=== PATIENT | male | born 1955 | race Caucasian/White ===

== ENCOUNTER 2022-05-26 08:30 | Emergency (ER) | payer MEDICARE, OTHER ==
[~2022-05-26] VITALS: Ht 175.3 cm; Wt 104.0 kg
[~2022-05-26 08:30] MED LIST: BUPR-50 PO; OLAN10TA74 PO; OLAN7.5T22 PO
[2022-05-26 09:03] LABS: BASOPHILS % (AUTO) 0.8 % (0.0-2.0); EOSINOPHILS % (AUTO) 2.4 % (1.0-6.0); HEMATOCRIT 40.8 % (41-53); HEMOGLOBIN 13.8 g/dL (13.5-17.5); LYMPHOCYTES # (AUTO) 1.7 K/uL (1.0-4.8); LYMPHOCYTES % (AUTO) 37.3 % (22.0-44.0); MEAN CORPUSCULAR HEMOGLOBIN 31.9 pg (26.0-34.0); MEAN CORPUSCULAR HGB CONC 33.9 G/dL (31.0-37.0); MEAN CORPUSCULAR VOLUME 94 fL (80-100); MONOCYTES # (AUTO) 0.4 K/uL (0.1-1.0); MONOCYTES % (AUTO) 8.7 % (2.0-9.0); NEUTROPHILS # (AUTO) 2.4 K/uL (1.8-7.7); NEUTROPHILS % (AUTO) 50.8 % (40.0-70.0); PLATELET COUNT (AUTO) 126 K/uL (150-450); RED BLOOD CELL COUNT(AUTO) 4.33 MIL/uL (4.50-5.90); RED CELL DISTRIBUTION WIDTH 13.5 % (11.5-14.5)
[2022-05-26 09:06] LABS: ANION GAP 7 mmol/L (8-16); CALCIUM, TOTAL 8.4 mg/dL (8.8-10.5); CARBON DIOXIDE 28 mmol/L (22-29); CHLORIDE 108 mmol/L (98-107); GLOMERULAR FILTR. RATE CALC 47 mL/min (>60); GLUCOSE,RANDOM 104 mg/dL (70-110); SODIUM SERUM 143 mmol/L (136-145); UREA NITROGEN, BLOOD 27 mg/dL (7-18)
[2022-05-26 09:07] VITALS: BP 119/84
[2022-05-26 09:14] LABS: ALANINE AMINOTRANSFERASE 39 U/L (12-78); ALKALINE PHOSPHATASE 71 U/L (46-116); ASPARTATE AMINOTRANSFERASE 27 U/L (15-37); BILIRUBIN,TOTAL 0.5 mg/dL (0.1-1.0); TOTAL PROTEIN, SERUM 6.6 g/dL (6.4-8.2)
[2022-05-26] MEDS ORDERED: ARIP1SOL PO (09:14)
[2022-05-26] MEDS ORDERED: DIVA125T32 PO (09:14)
[2022-05-26] MEDS ORDERED: GABA-1216 PO (09:14)
[2022-05-26] MEDS ORDERED: QUET25TA PO (09:14)
== END 2022-05-26 10:27 | disposition home or self-care (01) ==
LOC: EMS 08:30
DX: R45.851 Suicidal ideations (principal); F41.9 Anxiety disorder, unspecified; F20.9 Schizophrenia, unspecified; Z79.899 Other long term (current) drug therapy
CPT/HCPCS: 99284; 80053; 85025; 36415; G0480

== ENCOUNTER 2022-10-26 12:45 | Emergency (ER) | payer MEDICARE, OTHER ==
[~2022-10-26] VITALS: Ht 172.7 cm; Wt 86.4 kg
[~2022-10-26 12:45] MED LIST changes: +ARIP1SOL PO; +DIVA125T32 PO; +GABA-1216 PO; +QUET25TA PO
[2022-10-26 13:37] VITALS: BP 148/88
[2022-10-26 13:57] LABS: BASOPHILS % (AUTO) 0.6 % (0.0-2.0); EOSINOPHILS % (AUTO) 0.5 % (1.0-6.0); HEMATOCRIT 43.1 % (41-53); HEMOGLOBIN 14.5 g/dL (13.5-17.5); LYMPHOCYTES # (AUTO) 1.1 K/uL (1.0-4.8); LYMPHOCYTES % (AUTO) 21.5 % (22.0-44.0); MEAN CORPUSCULAR HEMOGLOBIN 32.5 pg (26.0-34.0); MEAN CORPUSCULAR HGB CONC 33.6 G/dL (31.0-37.0); MEAN CORPUSCULAR VOLUME 97 fL (80-100); MONOCYTES # (AUTO) 0.3 K/uL (0.1-1.0); MONOCYTES % (AUTO) 5.9 % (2.0-9.0); NEUTROPHILS # (AUTO) 3.6 K/uL (1.8-7.7); NEUTROPHILS % (AUTO) 71.5 % (40.0-70.0); PLATELET COUNT (AUTO) 124 K/uL (150-450); RED BLOOD CELL COUNT(AUTO) 4.46 MIL/uL (4.50-5.90); RED CELL DISTRIBUTION WIDTH 13.2 % (11.5-14.5)
[2022-10-26 14:05] LABS: CREATININE 1.33 mg/dL (0.60-1.30); POTASSIUM 4.5 mmol/L (3.5-5.1)
[2022-10-26 14:28] LABS: COVID AG,FIA SOURCE NASOPHARYNGEAL
[2022-10-26 14:51] LABS: INFLUENZA TYPE A NEGATIVE FOR TYPE A (NEGATIVE); INFLUENZA TYPE B NEGATIVE FOR TYPE B (NEGATIVE)
== END 2022-10-26 15:42 | disposition home or self-care (01) ==
LOC: EMS 12:49
DX: B34.9 Viral infection, unspecified (principal); Z20.822 Contact with and (suspected) exposure to COVID-19; F20.9 Schizophrenia, unspecified; F41.9 Anxiety disorder, unspecified; Z90.89 Acquired absence of other organs
CPT/HCPCS: 80048; 85025; 87804; 99283

== ENCOUNTER 2023-08-09 12:21 | Inpatient (IN) | payer MEDICARE, MEDICAID ==
[~2023-08-09] VITALS: Ht 175.3 cm; Wt 93.0 kg
[2023-08-09 15:09] LABS: BASOPHILS % (AUTO) 0.2 % (0.0-2.0); EOSINOPHILS % (AUTO) 0.2 % (1.0-6.0); HEMATOCRIT 43.2 % (41-53); HEMOGLOBIN 14.6 g/dL (13.5-17.5); LYMPHOCYTES # (AUTO) 1.2 K/uL (1.0-4.8); MEAN CORPUSCULAR HGB CONC 33.7 G/dL (31.0-37.0); MEAN CORPUSCULAR VOLUME 95 fL (80-100); MONOCYTES # (AUTO) 0.6 K/uL (0.1-1.0); MONOCYTES % (AUTO) 8.7 % (2.0-9.0); NEUTROPHILS % (AUTO) 72.9 % (40.0-70.0); PLATELET COUNT (AUTO) 170 K/uL (150-450); RED BLOOD CELL COUNT(AUTO) 4.55 MIL/uL (4.50-5.90); RED CELL DISTRIBUTION WIDTH 13.6 % (11.5-14.5); WHITE BLOOD COUNT (AUTO) 6.9 K/uL (4.5-11.0)
[2023-08-09 15:12] LABS: ANION GAP 7 mmol/L (8-16); CARBON DIOXIDE 28 mmol/L (22-29); CHLORIDE 107 mmol/L (98-107); CREATININE 1.23 mg/dL (0.60-1.30); GLOMERULAR FILTR. RATE CALC 59 mL/min (>60); GLUCOSE,RANDOM 114 mg/dL (70-110); POTASSIUM 4.8 mmol/L (3.5-5.1); SODIUM SERUM 142 mmol/L (136-145); UREA NITROGEN, BLOOD 27 mg/dL (7-18)
[2023-08-09 15:18] LABS: ALANINE AMINOTRANSFERASE 24 U/L (12-78); ALBUMIN 3.3 g/dL (3.4-5.0); ALKALINE PHOSPHATASE 81 U/L (46-116); ASPARTATE AMINOTRANSFERASE 20 U/L (15-37); BILIRUBIN,TOTAL 0.7 mg/dL (0.1-1.0); TOTAL PROTEIN, SERUM 7.1 g/dL (6.4-8.2)
[2023-08-09] MEDS ORDERED: LORazepam 2 MG TABLET PO PRN (15:45)
[2023-08-09] MEDS ORDERED: ZOLPIDEM TARTRATE 10 MG TABLET PO PRN (15:45)
[2023-08-09 16:12] LABS: ALCOHOL, BLOOD (SERUM) < 3 mg/dL (0-10)
[2023-08-09 16:33] LABS: COVID AG,FIA SOURCE NASAL SWAB
[2023-08-09 16:59] LABS: SARS-COV2 (COVID) ANTIGEN,FIA Negative (Negative)
[2023-08-10] MEDS ORDERED: LORazepam 2 MG/ML VIAL IM ONE (10:15)
[2023-08-10] MEDS: HALOPERIDOL 5 MG TABLET PO PRN (11:10)
[2023-08-10 13:10] VITALS: BP 150/80; PULSE 98; RESP 18; TEMP 97.8; O2SAT 97
[2023-08-10] MEDS ORDERED: INFLUENZA VIRUS VACCINE QVS 2023-24 (6MO+)/PF 60 MCG/0.5 ML SYRINGE IM. ONE (14:15)
[2023-08-10] MEDS ORDERED: PNEUMOCOCCAL VACCINE POLYVALENT 0.5 ML SYRINGE [PPSV23] IM. ONE (14:15)
[2023-08-10 21:06] VITALS: BP 134/83; PULSE 78; RESP 17; TEMP 97.9; O2SAT 96
[2023-08-11] MEDS ORDERED: ONDANSETRON HCL 4 MG TABLET PO PRN (07:15)
[2023-08-11] MEDS ORDERED: BENZOCAINE/MENTHOL LOZENGE PO PRN (07:15)
[2023-08-11] MEDS ORDERED: CloNIDine HCL 0.1 MG TABLET PO PRN (07:15)
[2023-08-11] MEDS ORDERED: IBUPROFEN 600 MG TABLET PO PRN (07:15)
[2023-08-11] MEDS ORDERED: LOPERAMIDE HCL 2 MG CAPSULE PO PRN (07:15)
[2023-08-11] MEDS ORDERED: DOCUSATE SODIUM 100 MG CAPSULE PO PRN (07:15)
[2023-08-11] MEDS ORDERED: PETROLATUM,WHITE 28 GM JELLY TP PRN (07:15)
[2023-08-11] MEDS ORDERED: OMEPRAZOLE 20 MG CAPSULE PO PRN (07:15)
[2023-08-11] MEDS ORDERED: ACETAMINOPHEN 325 MG TABLET PO PRN (07:15)
[2023-08-11] MEDS ORDERED: BACITRACIN 28 GM OINTMENT TP PRN (07:15)
[2023-08-11] MEDS ORDERED: MAGNESIUM HYDROXIDE SUSPENSION 30 ML UDCUP PO PRN (07:15)
[2023-08-11] MEDS ORDERED: MAG HYDROX/AL HYDROX/SIMETH ES 30 ML SUSPENSION UDCUP PO PRN (07:15)
[2023-08-11] MEDS ORDERED: ALBUTEROL SULFATE HFA 90 MCG/PUFF 8 GM INHALER IH PRN (07:15)
[2023-08-11 08:43] VITALS: BP 116/69; PULSE 59; RESP 18; TEMP 98; O2SAT 96
[2023-08-11] MEDS: HALOPERIDOL 5 MG TABLET PO PRN (18:59)
[2023-08-11] MEDS: DIVALPROEX SODIUM 500 MG DR TABLET PO SCH (18:59)
[2023-08-11] MEDS: QUEtiapine FUMARATE 300 MG TABLET PO SCH (20:30)
[2023-08-11 21:46] VITALS: BP 138/69; PULSE 61; RESP 18; TEMP 97.9; O2SAT 98
[2023-08-12 08:30] VITALS: BP 126/80; PULSE 75; RESP 17; TEMP 97.7; O2SAT 98
[2023-08-12] MEDS: AmLODIPine BESYLATE 5 MG TABLET PO SCH (08:40)
[2023-08-12] MEDS: DIVALPROEX SODIUM 500 MG DR TABLET PO SCH ×2 (08:40→16:45)
[2023-08-12 20:09] VITALS: BP 134/89; PULSE 97; RESP 18; TEMP 97.3; O2SAT 97
[2023-08-12] MEDS: QUEtiapine FUMARATE 300 MG TABLET PO SCH (20:31)
[2023-08-12] MEDS ORDERED: DIVA-112 PO (22:25)
[2023-08-12] MEDS ORDERED: QUET300T19 PO (22:25)
[2023-08-13] MEDS: DIVALPROEX SODIUM 500 MG DR TABLET PO SCH (08:04)
[2023-08-13] MEDS: AmLODIPine BESYLATE 5 MG TABLET PO SCH (08:04)
[2023-08-13 08:32] VITALS: BP 114/70; PULSE 82; RESP 17; TEMP 97.2; O2SAT 98
== END 2023-08-13 14:10 | disposition home or self-care (01) | DRG 885 ==
LOC: EMS 12:21 → B2X 08-10 09:46
PROVIDERS: ADMIT Psychiatry & Neurology Psychiatry; ATTEND Psychiatry & Neurology Psychiatry
DX: F20.9 Schizophrenia, unspecified (principal); T42.4X1A Poisoning by benzodiazepines, accidental (unintentional), initial encounter; F41.9 Anxiety disorder, unspecified; Z20.822 Contact with and (suspected) exposure to COVID-19; F10.90 Alcohol use, unspecified, uncomplicated; K59.00 Constipation, unspecified; G47.00 Insomnia, unspecified; Z79.899 Other long term (current) drug therapy; Y92.89 Other specified places as the place of occurrence of the external cause; Z90.49 Acquired absence of other specified parts of digestive tract
CPT/HCPCS: 80053; 85025; 90686; 90732; G0480; J2060

== ENCOUNTER 2023-09-17 12:05 | Inpatient (IN) | payer MEDICARE, MEDICAID ==
[~2023-09-17] VITALS: Ht 175.3 cm; Wt 81.4 kg
[~2023-09-17 12:05] MED LIST changes: -ARIP1SOL PO; -BUPR-50 PO; +DIVA-112 PO; -DIVA125T32 PO; -GABA-1216 PO; -OLAN10TA74 PO; -OLAN7.5T22 PO; -QUET25TA PO; +QUET300T19 PO
[2023-09-17 12:49] LABS: BASOPHILS % (AUTO) 0.8 % (0.0-2.0); HEMATOCRIT 41.4 % (41-53); LYMPHOCYTES # (AUTO) 1.2 K/uL (1.0-4.8); MEAN CORPUSCULAR HEMOGLOBIN 32.3 pg (26.0-34.0); MEAN CORPUSCULAR HGB CONC 33.8 G/dL (31.0-37.0); MEAN CORPUSCULAR VOLUME 95 fL (80-100); MONOCYTES # (AUTO) 0.4 K/uL (0.1-1.0); MONOCYTES % (AUTO) 7.4 % (2.0-9.0); NEUTROPHILS # (AUTO) 3.7 K/uL (1.8-7.7); NEUTROPHILS % (AUTO) 68.8 % (40.0-70.0); PLATELET COUNT (AUTO) 157 K/uL (150-450); RED BLOOD CELL COUNT(AUTO) 4.35 MIL/uL (4.50-5.90); RED CELL DISTRIBUTION WIDTH 13.1 % (11.5-14.5); WHITE BLOOD COUNT (AUTO) 5.4 K/uL (4.5-11.0)
[2023-09-17 12:54] LABS: COVID AG,FIA SOURCE NASAL SWAB
[2023-09-17 13:07] LABS: ANION GAP 9 mmol/L (8-16); CALCIUM, TOTAL 8.5 mg/dL (8.8-10.5); CARBON DIOXIDE 28 mmol/L (22-29); CHLORIDE 103 mmol/L (98-107); CREATININE 1.39 mg/dL (0.60-1.30); GLOMERULAR FILTR. RATE CALC 51 mL/min (>60); GLUCOSE,RANDOM 108 mg/dL (70-110); POTASSIUM 3.8 mmol/L (3.5-5.1); SODIUM SERUM 140 mmol/L (136-145); UREA NITROGEN, BLOOD 24 mg/dL (7-18)
[2023-09-17 13:13] LABS: ALANINE AMINOTRANSFERASE 22 U/L (12-78); ALBUMIN 3.5 g/dL (3.4-5.0); ALKALINE PHOSPHATASE 80 U/L (46-116); ASPARTATE AMINOTRANSFERASE 21 U/L (15-37); BILIRUBIN,TOTAL 0.9 mg/dL (0.1-1.0); TOTAL PROTEIN, SERUM 7.6 g/dL (6.4-8.2)
[2023-09-17 13:25] LABS: SARS-COV2 (COVID) ANTIGEN,FIA Negative (Negative)
[2023-09-17 13:39] LABS: ALCOHOL, URINE DRUG SCREEN NEGATIVE (NEGATIVE); AMPHET/METH SCREEN,URINE NEGATIVE (NEGATIVE); BARBITURATE SCREEN, URINE NEGATIVE (NEGATIVE); BENZODIAZEPINES SCREEN,URINE NEGATIVE (NEGATIVE); CANNABINOID SCREEN,URINE NEGATIVE (NEGATIVE); COCAINE SCREEN,URINE NEGATIVE (NEGATIVE); METHADONE SCREEN, URINE NEGATIVE (NEGATIVE); OPIATE SCREEN,URINE NEGATIVE (NEGATIVE); PHENCYCLIDINE SCREEN,URINE NEGATIVE (NEGATIVE)
[2023-09-17 13:41] LABS: ALCOHOL, BLOOD (SERUM) < 3 mg/dL (0-10)
[2023-09-17] MEDS ORDERED: ZOLPIDEM TARTRATE 10 MG TABLET PO PRN (14:00)
[2023-09-17] MEDS ORDERED: LORazepam 2 MG TABLET PO PRN (14:00)
[2023-09-17] MEDS ORDERED: OLANZapine 5 MG RAPDIS TABLET PO PRN (14:00)
[2023-09-17 14:43] LABS: APPEARANCE,URINE CLEAR (CLEAR); BILIRUBIN,URINE NEGATIVE (NEGATIVE); COLOR,URINE LIGHT YELLOW (YELLOW); GLUCOSE, URINE (UA) NEGATIVE (NEGATIVE); KETONES,URINE NEGATIVE (NEGATIVE); LEUKOCYTE ESTERASE ,URINE NEGATIVE (NEGATIVE); NITRATE,URINE NEGATIVE (NEGATIVE); OCCULT BLOOD,URINE NEGATIVE (NEGATIVE); PROTEIN,URINE NEGATIVE (NEGATIVE); SPECIFIC GRAVITIY, URINE 1.012 (1.003-1.030); UROBILINOGEN,URINE <=1.0 mg/dL (<=1.0)
[2023-09-17 16:40] VITALS: BP 159/68; PULSE 88; RESP 17; TEMP 97.5; O2SAT 96
[2023-09-17] MEDS ORDERED: PNEUMOCOCCAL VACCINE POLYVALENT 0.5 ML SYRINGE [PPSV23] IM. ONE (20:15)
[2023-09-17] MEDS ORDERED: CloNIDine HCL 0.1 MG TABLET PO PRN (21:15)
[2023-09-17] MEDS: AmLODIPine BESYLATE 5 MG TABLET PO SCH (21:18)
[2023-09-18] MEDS: AmLODIPine BESYLATE 5 MG TABLET PO SCH (08:37)
[2023-09-18 09:15] VITALS: BP 145/73; PULSE 77; RESP 18; TEMP 98; O2SAT 97
[2023-09-18] MEDS: DIVALPROEX SODIUM 500 MG DR TABLET PO SCH (17:27)
[2023-09-18] MEDS ORDERED: MAGNESIUM HYDROXIDE SUSPENSION 30 ML UDCUP PO PRN (17:30)
[2023-09-18] MEDS ORDERED: LOPERAMIDE HCL 2 MG CAPSULE PO PRN (17:30)
[2023-09-18] MEDS ORDERED: DOCUSATE SODIUM 100 MG CAPSULE PO PRN (17:30)
[2023-09-18] MEDS ORDERED: ONDANSETRON HCL 4 MG TABLET PO PRN (17:30)
[2023-09-18] MEDS ORDERED: BACITRACIN 28 GM OINTMENT TP PRN (17:30)
[2023-09-18] MEDS ORDERED: PETROLATUM,WHITE 28 GM JELLY TP PRN (17:30)
[2023-09-18] MEDS ORDERED: OMEPRAZOLE 20 MG CAPSULE PO PRN (17:30)
[2023-09-18] MEDS ORDERED: BENZOCAINE/MENTHOL LOZENGE PO PRN (17:30)
[2023-09-18] MEDS ORDERED: MAG HYDROX/ALUMINUM HYD/SIMETH ES 30 ML SUSPENSION UDCUP PO PRN (17:30)
[2023-09-18] MEDS ORDERED: ALBUTEROL SULFATE HFA 90 MCG/PUFF 8 GM INHALER IH PRN (17:30)
[2023-09-18] MEDS ORDERED: IBUPROFEN 600 MG TABLET PO PRN (17:30)
[2023-09-18 20:05] VITALS: BP 129/72; PULSE 68; RESP 16; TEMP 97.8; O2SAT 97
[2023-09-18] MEDS: QUEtiapine FUMARATE 300 MG TABLET PO SCH (20:48)
[2023-09-19 08:06] VITALS: BP 126/73; PULSE 68; RESP 16; TEMP 98.1; O2SAT 95
[2023-09-19 08:28] LABS: CALCIUM, TOTAL 8.5 mg/dL (8.8-10.5); CREATININE 1.37 mg/dL (0.60-1.30); POTASSIUM 4.5 mmol/L (3.5-5.1)
[2023-09-19] MEDS: AmLODIPine BESYLATE 5 MG TABLET PO SCH (08:34)
[2023-09-19] MEDS: DIVALPROEX SODIUM 500 MG DR TABLET PO SCH ×2 (08:34→16:26)
[2023-09-19 16:06] VITALS: BP 136/86; PULSE 97; RESP 18; TEMP 97.6; O2SAT 97
[2023-09-19 20:05] VITALS: BP 136/96; PULSE 97; RESP 18; TEMP 97.6; O2SAT 97
[2023-09-19] MEDS: QUEtiapine FUMARATE 300 MG TABLET PO SCH (20:22)
[2023-09-20 09:00] VITALS: BP 120/78; PULSE 95; RESP 17; TEMP 98.1; O2SAT 95
[2023-09-20] MEDS: AmLODIPine BESYLATE 5 MG TABLET PO SCH (09:31)
[2023-09-20] MEDS: DIVALPROEX SODIUM 500 MG DR TABLET PO SCH ×2 (09:31→16:59)
[2023-09-20 20:03] VITALS: BP 118/67; PULSE 62; RESP 17; TEMP 97.6
[2023-09-20] MEDS: QUEtiapine FUMARATE 300 MG TABLET PO SCH (20:21)
[2023-09-21 08:34] VITALS: BP 132/88; PULSE 79; RESP 18; TEMP 98.9; O2SAT 98
[2023-09-21] MEDS: AmLODIPine BESYLATE 5 MG TABLET PO SCH (08:56)
[2023-09-21] MEDS: DIVALPROEX SODIUM 500 MG DR TABLET PO SCH ×2 (08:56→16:38)
[2023-09-21 20:21] VITALS: BP 121/68; PULSE 65; RESP 19; TEMP 97.6; O2SAT 96
[2023-09-21] MEDS: QUEtiapine FUMARATE 300 MG TABLET PO SCH (20:34)
[2023-09-22 08:00] VITALS: BP 130/76; PULSE 69; RESP 18; TEMP 98.5; O2SAT 98
[2023-09-22] MEDS: AmLODIPine BESYLATE 5 MG TABLET PO SCH (08:46)
[2023-09-22] MEDS: DIVALPROEX SODIUM 500 MG DR TABLET PO SCH ×2 (08:46→16:22)
[2023-09-22 20:22] VITALS: BP 129/89; PULSE 84; RESP 18; TEMP 97.7; O2SAT 97
[2023-09-22] MEDS: QUEtiapine FUMARATE 300 MG TABLET PO SCH (20:31)
[2023-09-23 08:25] VITALS: BP 139/81; PULSE 73; RESP 18; TEMP 97.3; O2SAT 97
[2023-09-23] MEDS: AmLODIPine BESYLATE 5 MG TABLET PO SCH (10:33)
[2023-09-23] MEDS: ACETAMINOPHEN 325 MG TABLET PO PRN ×2 (10:33→16:02)
[2023-09-23] MEDS: DIVALPROEX SODIUM 500 MG DR TABLET PO SCH ×2 (10:33→16:03)
[2023-09-23] MEDS: QUEtiapine FUMARATE 300 MG TABLET PO SCH (20:26)
[2023-09-23 21:48] VITALS: BP 149/89; PULSE 69; RESP 18; TEMP 97.6; O2SAT 97
[2023-09-24 09:01] VITALS: BP 125/75; PULSE 93; RESP 17; TEMP 97.6; O2SAT 97
[2023-09-24] MEDS: DIVALPROEX SODIUM 500 MG DR TABLET PO SCH ×2 (09:14→16:40)
[2023-09-24] MEDS: AmLODIPine BESYLATE 5 MG TABLET PO SCH (09:14)
[2023-09-24 10:58] VITALS: RESP 18; O2SAT 97
[2023-09-24] MEDS: ACETAMINOPHEN 325 MG TABLET PO PRN (10:58)
[2023-09-24 11:58] VITALS: RESP 17; O2SAT 97
[2023-09-24 20:33] VITALS: BP 137/77; PULSE 82; RESP 17; TEMP 98; O2SAT 97
[2023-09-24] MEDS: QUEtiapine FUMARATE 300 MG TABLET PO SCH (20:47)
[2023-09-25 08:08] VITALS: BP 150/87; PULSE 72; RESP 18; TEMP 97.6; O2SAT 99
[2023-09-25] MEDS: AmLODIPine BESYLATE 5 MG TABLET PO SCH (09:25)
[2023-09-25] MEDS: DIVALPROEX SODIUM 500 MG DR TABLET PO SCH ×2 (09:25→16:15)
[2023-09-25] MEDS: ACETAMINOPHEN 325 MG TABLET PO PRN (15:08)
[2023-09-25] MEDS: QUEtiapine FUMARATE 300 MG TABLET PO SCH (20:59)
[2023-09-25 21:49] VITALS: BP 131/81; PULSE 85; RESP 16; TEMP 97.9; O2SAT 100
[2023-09-26 08:45] VITALS: BP 111/70; PULSE 76; RESP 20; TEMP 98.6; O2SAT 98
[2023-09-26] MEDS: AmLODIPine BESYLATE 5 MG TABLET PO SCH (08:45)
[2023-09-26] MEDS: DIVALPROEX SODIUM 500 MG DR TABLET PO SCH ×2 (08:45→16:12)
[2023-09-26] MEDS: QUEtiapine FUMARATE 300 MG TABLET PO SCH (20:21)
[2023-09-26 21:15] VITALS: BP 130/85; PULSE 74; TEMP 98.3
[2023-09-27 08:11] VITALS: BP 136/83; PULSE 62; RESP 18; TEMP 97.4; O2SAT 99
[2023-09-27] MEDS: AmLODIPine BESYLATE 5 MG TABLET PO SCH (09:48)
[2023-09-27] MEDS: DIVALPROEX SODIUM 500 MG DR TABLET PO SCH ×2 (09:48→16:18)
[2023-09-27] MEDS: QUEtiapine FUMARATE 300 MG TABLET PO SCH (20:09)
[2023-09-27 20:45] VITALS: BP 140/83; PULSE 60; RESP 18; TEMP 98.1; O2SAT 99
[2023-09-28] MEDS: AmLODIPine BESYLATE 5 MG TABLET PO SCH (08:51)
[2023-09-28] MEDS: DIVALPROEX SODIUM 500 MG DR TABLET PO SCH ×2 (08:52→16:34)
[2023-09-28 09:30] VITALS: BP 148/86; PULSE 78; RESP 18; TEMP 98; O2SAT 98
[2023-09-28] MEDS ORDERED: AMLO-257 PO (13:32)
== END 2023-09-28 15:15 | disposition home or self-care (01) | DRG 885 ==
LOC: EMS 12:06 → B2X 14:54
PROVIDERS: ADMIT Psychiatry & Neurology Psychiatry; ATTEND Psychiatry & Neurology Psychiatry
DX: F25.1 Schizoaffective disorder, depressive type (principal); R45.851 Suicidal ideations; I10 Essential (primary) hypertension; F41.9 Anxiety disorder, unspecified; Z20.822 Contact with and (suspected) exposure to COVID-19; G47.00 Insomnia, unspecified; K59.00 Constipation, unspecified; F10.90 Alcohol use, unspecified, uncomplicated; Z90.49 Acquired absence of other specified parts of digestive tract
CPT/HCPCS: 80048; 80053; 80164; 80307; 81003; 85025; 99285; G0480

== ENCOUNTER 2023-11-14 12:39 | Emergency (ER) | payer MEDICARE, OTHER ==
[~2023-11-14] VITALS: Ht 175.3 cm; Wt 94.0 kg
[~2023-11-14 12:39] MED LIST changes: +AMLO-257 PO
[2023-11-14 12:45] VITALS: TEMP 98.3
[2023-11-14 13:19] LABS: BASOPHILS % (AUTO) 0.8 % (0.0-2.0); EOSINOPHILS % (AUTO) 3.3 % (1.0-6.0); HEMATOCRIT 39.6 % (41-53); HEMOGLOBIN 13.4 g/dL (13.5-17.5); LYMPHOCYTES % (AUTO) 22.8 % (22.0-44.0); MEAN CORPUSCULAR HEMOGLOBIN 31.9 pg (26.0-34.0); MEAN CORPUSCULAR HGB CONC 33.7 G/dL (31.0-37.0); MEAN CORPUSCULAR VOLUME 95 fL (80-100); MONOCYTES # (AUTO) 0.3 K/uL (0.1-1.0); MONOCYTES % (AUTO) 7.4 % (2.0-9.0); NEUTROPHILS % (AUTO) 65.7 % (40.0-70.0); PLATELET COUNT (AUTO) 186 K/uL (150-450); RED BLOOD CELL COUNT(AUTO) 4.19 MIL/uL (4.50-5.90); WHITE BLOOD COUNT (AUTO) 4.6 K/uL (4.5-11.0)
[2023-11-14 13:29] LABS: CALCIUM, TOTAL 8.8 mg/dL (8.8-10.5); CREATININE 1.34 mg/dL (0.60-1.30); POTASSIUM 4.7 mmol/L (3.5-5.1)
[2023-11-14 13:34] LABS: ALBUMIN 3.2 g/dL (3.4-5.0); BILIRUBIN,TOTAL 0.4 mg/dL (0.1-1.0); TOTAL PROTEIN, SERUM 6.6 g/dL (6.4-8.2)
[2023-11-14 13:36] LABS: TROPONIN I-HIGH SENSITIVITY 10 ng/L (<76)
[2023-11-14 16:45] VITALS: BP 135/81; PULSE 68; RESP 16
== END 2023-11-14 17:05 | disposition home or self-care (01) ==
LOC: EMS 12:40
DX: H53.2 Diplopia (principal); F25.1 Schizoaffective disorder, depressive type; F41.9 Anxiety disorder, unspecified; I10 Essential (primary) hypertension; Z90.49 Acquired absence of other specified parts of digestive tract
CPT/HCPCS: 80053; 84484; 85025; 93005; 99284

== ENCOUNTER 2023-12-26 09:19 | Emergency (ER) | payer MEDICARE, OTHER ==
[~2023-12-26] VITALS: Ht 175.3 cm; Wt 92.7 kg
[2023-12-26 09:49] VITALS: TEMP 98.2
[2023-12-26] MEDS ORDERED: QUET300T2 PO (13:01)
[2023-12-26] MEDS ORDERED: TRAZ-257 PO (13:01)
[2023-12-26 13:21] VITALS: BP 142/80; PULSE 66; RESP 16
== END 2023-12-26 13:25 | disposition home or self-care (01) ==
LOC: EMS 09:23
DX: H53.8 Other visual disturbances (principal); F25.1 Schizoaffective disorder, depressive type; F41.9 Anxiety disorder, unspecified; I10 Essential (primary) hypertension; Z90.49 Acquired absence of other specified parts of digestive tract
CPT/HCPCS: 99283; Z7502

== ENCOUNTER → 2025-01-02 | Emergency (ER) | payer MEDICARE, OTHER ==
[~2025-01-02] VITALS: Ht 175.3 cm; Wt 96.3 kg
[~2025-01-02] MED LIST changes: +QUET300T2 PO; +TRAZ-257 PO
[2025-01-02 07:19] VITALS: TEMP 97.7
[2025-01-02 08:55] VITALS: BP 135/89; PULSE 65; RESP 16; O2SAT 97
== END | disposition home or self-care (01) ==
LOC: EMS 07:16
DX: H53.8 Other visual disturbances (principal); I10 Essential (primary) hypertension; F20.9 Schizophrenia, unspecified; Z79.899 Other long term (current) drug therapy; Z98.890 Other specified postprocedural states
CPT/HCPCS: 99283; Z7502

== ENCOUNTER 2025-06-14 03:51 | Inpatient (IN) | payer MEDICARE, MEDICAID ==
[~2025-06-14] VITALS: Ht 175.3 cm; Wt 104.1 kg
[2025-06-14 04:15] LABS: COVID AG,FIA SOURCE NASAL SWAB
[2025-06-14 04:19] LABS: PLATELET COUNT (AUTO) 158 K/uL (150-450); RED BLOOD CELL COUNT(AUTO) 4.75 MIL/uL (4.50-5.90); RED CELL DISTRIBUTION WIDTH 13.2 % (11.5-14.5); WHITE BLOOD COUNT (AUTO) 5.6 K/uL (4.5-11.0)
[2025-06-14 04:25] LABS: CALCIUM, TOTAL 8.6 mg/dL (8.8-10.5); CREATININE 1.37 mg/dL (0.60-1.30); GLOMERULAR FILTR. RATE CALC 52.0 mL/min (>60); GLUCOSE,RANDOM 142.0 mg/dL (70-110); SODIUM SERUM 136.0 mmol/L (136-145); UREA NITROGEN, BLOOD 19.0 mg/dL (7-18)
[2025-06-14 04:36] LABS: SARS-COV2 (COVID) ANTIGEN,FIA Negative (Negative)
[2025-06-14 05:36] LABS: APPEARANCE,URINE CLEAR (CLEAR); GLUCOSE, URINE (UA) NEGATIVE (NEGATIVE); LEUKOCYTE ESTERASE ,URINE NEGATIVE (NEGATIVE); NITRATE,URINE NEGATIVE (NEGATIVE); OCCULT BLOOD,URINE NEGATIVE (NEGATIVE); PH,URINE DRUG SCREEN 6.5 (5.0-8.0); SPECIFIC GRAVITIY, URINE 1.021 (1.003-1.030)
[2025-06-14 05:41] LABS: ALCOHOL, URINE DRUG SCREEN NEGATIVE (NEGATIVE); AMPHET/METH SCREEN,URINE NEGATIVE (NEGATIVE); BARBITURATE SCREEN, URINE NEGATIVE (NEGATIVE); CANNABINOID SCREEN,URINE NEGATIVE (NEGATIVE); COCAINE SCREEN,URINE NEGATIVE (NEGATIVE); METHADONE SCREEN, URINE NEGATIVE (NEGATIVE)
[2025-06-14] MEDS ORDERED: ZOLPIDEM TARTRATE 10 MG TABLET PO PRN (11:15)
[2025-06-14 13:34] VITALS: BP 169/75; PULSE 62; RESP 16; TEMP 98.1; O2SAT 99
[2025-06-14 16:01] VITALS: BP 157/75; PULSE 67; RESP 16; TEMP 98.1; O2SAT 99
[2025-06-14] MEDS: DIVALPROEX SODIUM 500 MG DR TABLET PO SCH (16:53)
[2025-06-14] MEDS: LITHIUM CARBONATE 300 MG CAPSULE PO SCH (16:53)
[2025-06-14 20:00] VITALS: BP_SYST 131; BP_SYST 147; BP_DIAS 64; BP_DIAS 87; PULSE 62; PULSE 80; RESP 17; TEMP 97.8; TEMP 98.4; O2SAT 97
[2025-06-15 08:34] VITALS: BP 136/93; PULSE 74; RESP 17; TEMP 98.1; O2SAT 99
[2025-06-15] MEDS ORDERED: ONDANSETRON 4 MG TABLET PO PRN (08:45)
[2025-06-15] MEDS ORDERED: PETROLATUM,WHITE 28 GM JELLY TP PRN (08:45)
[2025-06-15] MEDS ORDERED: BACITRACIN 28 GM OINTMENT TP PRN (08:45)
[2025-06-15] MEDS ORDERED: IBUPROFEN 600 MG TABLET PO PRN (08:45)
[2025-06-15] MEDS ORDERED: LOPERAMIDE HCL 2 MG CAPSULE PO PRN (08:45)
[2025-06-15] MEDS ORDERED: BENZOCAINE/MENTHOL [CEPACOL] LOZENGE PO PRN (08:45)
[2025-06-15] MEDS ORDERED: MAGNESIUM HYDROXIDE SUSPENSION 30 ML UDCUP PO PRN (08:45)
[2025-06-15] MEDS ORDERED: ACETAMINOPHEN 325 MG TABLET PO PRN (08:45)
[2025-06-15] MEDS ORDERED: ALBUTEROL SULFATE HFA 90 MCG/PUFF 8 GM INHALER IH PRN (08:45)
[2025-06-15] MEDS ORDERED: OMEPRAZOLE 20 MG CAPSULE PO PRN (08:45)
[2025-06-15] MEDS ORDERED: MAG HYDROX/ALUMINUM HYD/SIMETH ES 30 ML SUSPENSION UDCUP PO PRN (08:45)
[2025-06-15] MEDS ORDERED: DOCUSATE SODIUM 100 MG CAPSULE PO PRN (08:45)
[2025-06-15 09:49] LABS: PLATELET COUNT (AUTO) 146 K/uL (150-450); RED BLOOD CELL COUNT(AUTO) 4.89 MIL/uL (4.50-5.90); RED CELL DISTRIBUTION WIDTH 13.2 % (11.5-14.5); WHITE BLOOD COUNT (AUTO) 5.6 K/uL (4.5-11.0)
[2025-06-15 10:08] LABS: ASPARTATE AMINOTRANSFERASE 30 U/L (15-37); CALCIUM, TOTAL 9.0 mg/dL (8.8-10.5); CHOL/HDL RATIO 2.9 (4.2-7.3); CREATININE 1.12 mg/dL (0.60-1.30); GLOMERULAR FILTR. RATE CALC > 60 mL/min (>60); GLUCOSE,RANDOM 82 mg/dL (70-110); LDL CHOL (CALC.) 141 mg/dL (0-130); SODIUM SERUM 139 mmol/L (136-145); TOTAL PROTEIN, SERUM 7.4 g/dL (6.4-8.2); UREA NITROGEN, BLOOD 19 mg/dL (7-18)
[2025-06-15 20:02] VITALS: BP 123/83; PULSE 88; RESP 19; TEMP 97.8; O2SAT 96
[2025-06-16] MEDS: BuPROPion HCL XL 150 MG ER TABLET PO SCH (08:11)
[2025-06-16 08:18] VITALS: BP 131/67; PULSE 62; RESP 17; TEMP 98.2; O2SAT 97
[2025-06-16 09:02] LABS: PLATELET COUNT (AUTO) 128 K/uL (150-450); RED BLOOD CELL COUNT(AUTO) 4.60 MIL/uL (4.50-5.90); RED CELL DISTRIBUTION WIDTH 13.5 % (11.5-14.5); WHITE BLOOD COUNT (AUTO) 5.4 K/uL (4.5-11.0)
[2025-06-16 09:23] LABS: ASPARTATE AMINOTRANSFERASE 20.0 U/L (15-37); CALCIUM, TOTAL 8.8 mg/dL (8.8-10.5); CHOL/HDL RATIO 2.8 (4.2-7.3); CREATININE 1.22 mg/dL (0.60-1.30); GLOMERULAR FILTR. RATE CALC 59.0 mL/min (>60); GLUCOSE,RANDOM 88.0 mg/dL (70-110); LDL CHOL (CALC.) 114.0 mg/dL (0-130); PHOSPHORUS 3.0 mg/dL (2.5-4.9); SODIUM SERUM 137.0 mmol/L (136-145); TOTAL PROTEIN, SERUM 6.5 g/dL (6.4-8.2); UREA NITROGEN, BLOOD 25.0 mg/dL (7-18)
[2025-06-16 20:01] VITALS: BP 125/84; PULSE 72; RESP 16; TEMP 98.1; O2SAT 99
[2025-06-17 08:18] VITALS: BP 140/79; PULSE 70; RESP 8; TEMP 98.2; O2SAT 99
[2025-06-17 20:07] VITALS: BP 124/69; PULSE 70; RESP 17; TEMP 98; O2SAT 100
[2025-06-18 07:51] VITALS: BP 149/86; PULSE 71; RESP 18; TEMP 98; O2SAT 99
[2025-06-18 08:00] VITALS: BP 149/86; PULSE 71; RESP 18; TEMP 98; O2SAT 99
[2025-06-18 20:03] VITALS: BP 133/70; PULSE 72; RESP 18; TEMP 97.5; O2SAT 98
[2025-06-19 08:23] VITALS: BP 144/73; PULSE 63; RESP 17; TEMP 97.9; O2SAT 97
[2025-06-19] MEDS ORDERED: BUPR-50 PO (10:00)
[2025-06-19] MEDS ORDERED: AMLO5TAB66 PO (10:03)
[2025-06-19] MEDS ORDERED: DIVA-112 PO (10:05)
[2025-06-19] MEDS ORDERED: LITH300C3 PO (10:06)
[2025-06-19] MEDS ORDERED: QUET300T2 PO (10:20)
[2025-06-19 10:27] LABS: VALPROIC ACID 46.0 mcg/mL (50-100)
== END 2025-06-19 11:45 | disposition home or self-care (01) | DRG 885 ==
LOC: EMS 04:55 → B2X 10:11 → EMS 10:42
PROVIDERS: ADMIT Psychiatry & Neurology Psychiatry; ATTEND Psychiatry & Neurology Psychiatry
DX: F25.1 Schizoaffective disorder, depressive type (principal); N18.30 Chronic kidney disease, stage 3 unspecified; R45.851 Suicidal ideations; F41.9 Anxiety disorder, unspecified; I12.9 Hypertensive chronic kidney disease with stage 1 through stage 4 chronic kidney disease, or unspecified chronic kidney disease; E66.9 Obesity, unspecified; H54.61 Unqualified visual loss, right eye, normal vision left eye; K59.00 Constipation, unspecified; G47.00 Insomnia, unspecified; F10.90 Alcohol use, unspecified, uncomplicated; Z20.822 Contact with and (suspected) exposure to COVID-19; Z68.33 Body mass index [BMI] 33.0-33.9, adult; Z85.840 Personal history of malignant neoplasm of eye
CPT/HCPCS: 80048; 80053; 80061; 80164; 80178; 80307; 81003; 83036; 83735; 84100; 84436; 84439; 84443; 85025; 99285; G0480